=== PATIENT | male | born 1975 | race Two or more races ===

== ENCOUNTER 2020-08-12 23:34 | Emergency (ER) | payer OTHER ==
[~2020-08-12] VITALS: Ht 170.2 cm; Wt 81.6 kg
[2020-08-12] MEDS ORDERED: NEURONTIN300 MG (23:38)
[2020-08-12] MEDS ORDERED: FORTAMET500 MG (23:38)
== END 2020-08-13 01:17 | disposition home or self-care (01) ==
LOC: ER 23:34
DX: H10.11 Acute atopic conjunctivitis, right eye (principal)

== ENCOUNTER 2021-05-10 22:31 | Emergency (ER) | payer OTHER ==
[~2021-05-10] VITALS: Ht 170.2 cm; Wt 83.9 kg
[~2021-05-10 22:31] MED LIST: FORTAMET500 MG; NEURONTIN300 MG
[2021-05-11] MEDS ORDERED: DICLOFENAC SODI75 MG PO (01:05)
== END 2021-05-11 01:24 | disposition home or self-care (01) ==
LOC: ER 22:31
DX: M79.10 Myalgia, unspecified site (principal); E11.9 Type 2 diabetes mellitus without complications; Z79.4 Long term (current) use of insulin

== ENCOUNTER 2021-06-30 12:21 | Emergency (ER) | payer OTHER ==
[~2021-06-30] VITALS: Ht 170.2 cm; Wt 81.2 kg
[~2021-06-30 12:21] MED LIST changes: +DICLOFENAC SODI75 MG PO
[2021-06-30] MEDS ORDERED: ZITHROMAX TRI-500 MG PO (14:52)
== END 2021-06-30 14:55 | disposition home or self-care (01) ==
LOC: ER 12:21
DX: B34.9 Viral infection, unspecified (principal); E11.9 Type 2 diabetes mellitus without complications; Z79.84 Long term (current) use of oral hypoglycemic drugs; Z20.822 Contact with and (suspected) exposure to COVID-19

== ENCOUNTER 2022-03-16 21:51 | Emergency (ER) | payer OTHER ==
[~2022-03-16] VITALS: Ht 170.2 cm; Wt 81.6 kg
[~2022-03-16 21:51] MED LIST changes: +ZITHROMAX TRI-500 MG PO
== END 2022-03-17 02:10 | disposition home or self-care (01) ==
LOC: ER 21:51
DX: B34.9 Viral infection, unspecified (principal); R51.9 Headache, unspecified; R50.9 Fever, unspecified; E11.9 Type 2 diabetes mellitus without complications; Z20.822 Contact with and (suspected) exposure to COVID-19; R11.10 Vomiting, unspecified

== ENCOUNTER 2022-06-25 23:10 | Emergency (ER) | payer OTHER ==
[~2022-06-25] VITALS: Ht 170.2 cm; Wt 81.6 kg
[2022-06-26] MEDS ORDERED: PHENAGIL TABLE1 EACH PO (05:11)
[2022-06-26] MEDS ORDERED: ZYNCOF 20-400120 ML PO (05:11)
[2022-06-26] MEDS ORDERED: DOLOGESIC-DF 51 EACH PO (05:11)
== END 2022-06-26 05:15 ==
LOC: ER 23:10
DX: B34.9 Viral infection, unspecified (principal); R53.81 Other malaise; Z20.822 Contact with and (suspected) exposure to COVID-19; E11.9 Type 2 diabetes mellitus without complications

== ENCOUNTER 2022-08-21 22:31 | Emergency (ER) | payer OTHER ==
[~2022-08-21] VITALS: Ht 170.2 cm; Wt 83.9 kg
[~2022-08-21 22:31] MED LIST changes: +DOLOGESIC-DF 51 EACH PO; +PHENAGIL TABLE1 EACH PO; +ZYNCOF 20-400120 ML PO
== END 2022-08-22 04:00 | disposition home or self-care (01) ==
LOC: ER 22:31
DX: B34.8 Other viral infections of unspecified site (principal); Z20.822 Contact with and (suspected) exposure to COVID-19

== ENCOUNTER 2025-01-06 06:15 | Inpatient (IN) | payer OTHER ==
[~2025-01-06] VITALS: Ht 167.6 cm; Wt 81.6 kg
--- NOTE | 2025-01-06 06:20 | NUR ---
PTE ALERTA Y ORIENTADO X3 VERBALIZA QUE TIENE DOLOR DE BEBETO HACE KATIE SEMANA Y NO MEJORA. SE LE BUBBA S/V Y SE UBICA.
--- NOTE | 2025-01-06 06:32 | NUR ---
SE LE REALIZA EKG PRESION 196/96
[2025-01-06] MEDS ORDERED: CLONIDINE HCL 0.1 MG TABLET PO ONE (06:59)
[2025-01-06] MEDS ORDERED: CLONIDINE HCL 0.1 MG TABLET PO STA (07:00)
[2025-01-06] MEDS ORDERED: DEXAMETHASONE SODIUM PHOSPHATE 4 MG/ML VIAL IV STA (07:43)
[2025-01-06] MEDS ORDERED: KETOROLAC TROMETHAMINE 30 MG VIAL IV ONE (07:45)
[2025-01-06] MEDS ORDERED: METOCLOPRAMIDE HCL 5 MG/ML VIAL IV ONE (07:45)
[2025-01-06] MEDS ORDERED: DIPHENHYDRAMINE HCL 50 MG/ML VIAL 1ML IV STA (07:45)
[2025-01-06] MEDS ORDERED: 0.9 % SODIUM CHLORIDE 1,000 ML IV STA (07:46)
[2025-01-06] MEDS ORDERED: DIPHENHYDRAMINE HCL 50 MG/ML VIAL 1ML ONE (08:45)
[2025-01-06] MEDS ORDERED: KETOROLAC TROMETHAMINE 30 MG VIAL ONE (08:45)
[2025-01-06] MEDS ORDERED: DEXAMETHASONE SODIUM PHOSPHATE 4 MG/ML VIAL ONE (08:46)
[2025-01-06] MEDS ORDERED: METOCLOPRAMIDE HCL 5 MG/ML VIAL ONE (08:46)
[2025-01-06 09:00] LABS: BASO % 0.3 % (0.1-1.2); EOS # 0.06 (0.04-0.54); EOS % 0.7 % (0.7-7.0); LYMPH # 1.16 (1.18-3.74); LYMPH % 12.7 % (19.3-53.1); MEAN PLATELET VOLUME 11.60 fl (9.4-12.4); MONO # 0.60 (0.24-0.82); MONO % 6.6 % (4.7-12.5); NEUT # 7.20 (1.56-6.13); NEUT % 79.2 % (34.0-71.1); RED CELL DISTRIBUTION WIDTH 13.6 % (11.6-14.4)
--- NOTE | 2025-01-06 09:00 | NUR ---
SE ORIENTA NPTE SOBRE TX A SEGUIR, LA MISMA REFIERE ENTENDER. SE APARNA MUESTRA DE LAB, SE CANALIZA Y ADMINISTRA MED MARK ORDEN MEDICA
[2025-01-06 09:03] LABS: ERYTHROCYTE SEDIMENTATION RATE 37 mm/hr (0-15)
[2025-01-06] MEDS ORDERED: hydrALAZINE HCL 20 MG VIAL ONE (09:18)
[2025-01-06] MEDS ORDERED: hydrALAZINE HCL 20 MG VIAL IV STA (09:18)
[2025-01-06 11:01] LABS: BUN CREA RATIO 19 (7.0-25.0); CREATININE SERUM 0.89 mg/dL (0.70-1.30); GFR 91.23
[2025-01-06 12:04] LABS: OSMOLALITY SERUM 286 MOSM/KG (275-295)
[2025-01-06] MEDS ORDERED: LABETALOL HCL 20MG/4ML SYRINGE IV STA (12:27)
[2025-01-06] MEDS ORDERED: LABETALOL HCL 100 MG/20 ML ML ONE (13:06)
[2025-01-06 13:19] LABS: URINE APPEARANCE Clear; URINE BILIRRUBIN Negative (NEGATIVE); URINE BLOOD Large; URINE COLOR Yellow; URINE KETONE 15 (NEGATIVE); URINE LEUKOCYTE Negative; URINE NITRATE Negative; URINE PROTEIN >=1000 (NEGATIVE); URINE UROBILINOGEN 0.2 E.U./dl
[2025-01-06 13:24] LABS: URINE BACTERIA 184.8 uL (0.0-1933); URINE CAST 9.67 uL (0.0-1.40); URINE EPITHELIAL CELLS 20.1 uL (0.0-38.8); URINE RBC 249.7 uL (0.0-20.8); URINE WBC 24.9 uL (0.0-23.2)
[2025-01-06 13:57] LABS: URINE GLUCOSE >=1000 MG/DL (NEGATIVE)
[2025-01-06 14:06] LABS: GLUCOSE FASTING 285 mg/dL (65-100)
[2025-01-06] MEDS ORDERED: LABETALOL HCL 100 MG/20 ML ML IV STA (14:49)
[2025-01-06] MEDS ORDERED: CLEVIDIPINE BUTYRATE 100 ML IV SCH (16:30)
[2025-01-06] MEDS ORDERED: DEXTROSE 50 % IN WATER 0.5 G/ML DISP.SYRIN IV PRN (17:45)
[2025-01-06] MEDS ORDERED: ACETAMINOPHEN 325 MG TABLET PO PRN (17:45)
[2025-01-06] MEDS ORDERED: INSULIN LISPRO 1,000 UNIT/10 ML UNITS SUBCUTANEO PRN (17:45)
[2025-01-06] MEDS ORDERED: hydrALAZINE HCL 20 MG VIAL IV PRN ×2 (18:00→19:45)
[2025-01-06 19:33] VITALS: BP 160/90; O2SAT 100
[2025-01-06] MEDS ORDERED: NITROGLYCERIN IN 5 % DEXTROSE 250 ML IV SCH (19:45)
[2025-01-06] MEDS ORDERED: MORPHINE SULFATE 4 MG/ML CARTRIDGE IV PRN (23:30)
[2025-01-07 02:26] VITALS: BP 144/74; O2SAT 98
[2025-01-07 08:33] LABS: CHOL HDL RATIO 3.6 (0-5.0); HDL 49.0 mg/dl (40-60); LDL 110.0 mg/dl (0-130); TSH 3.05 uIU/mL (0.358-3.74); VLDL 17.0 (0-39)
[2025-01-07 08:44] VITALS: BP 155/83; O2SAT 99
[2025-01-07] MEDS ORDERED: ENOXAPARIN SODIUM 40 MG/0.4 ML SYRINGE SUBCUTANEO SCH (09:00)
[2025-01-07] MEDS ORDERED: GABAPENTIN 300 MG CAPSULE PO SCH (09:00)
[2025-01-07] MEDS ORDERED: ACETAMINOPHEN 500 MG GEL..CAP PO PRN (15:30)
[2025-01-07 18:33] VITALS: BP 140/80
[2025-01-08 02:43] VITALS: BP 126/73; O2SAT 97
[2025-01-08] MEDS ORDERED: LOSARTAN POTASSIUM 100 MG TABLET PO SCH (09:00)
[2025-01-08 10:17] VITALS: BP 164/90; O2SAT 98
== END 2025-01-08 13:06 | disposition home or self-care (01) | DRG 305 ==
LOC: ER 06:15 → MEDJ 17:44
PROVIDERS: General Practice; Physician Assistant Medical; ADMIT Internal Medicine; ATTEND Internal Medicine
PROC: BW28ZZZ Computerized Tomography (CT Scan) of Head (ICD-10-PCS; principal; 2025-01-06)
PROC: BT43ZZZ Ultrasonography of Bilateral Kidneys (ICD-10-PCS; 2025-01-06)
PROC: B246ZZZ Ultrasonography of Right and Left Heart (ICD-10-PCS; 2025-01-06)
PROC: 4A12X4Z Monitoring of Cardiac Electrical Activity, External Approach (ICD-10-PCS; 2025-01-07)
DX: I16.9 Hypertensive crisis, unspecified (principal); I10 Essential (primary) hypertension; E11.65 Type 2 diabetes mellitus with hyperglycemia; E11.40 Type 2 diabetes mellitus with diabetic neuropathy, unspecified; Z79.4 Long term (current) use of insulin